=== PATIENT | male | born 1950 | race Caucasian/White ===

== ENCOUNTER 2020-04-21 20:40 | Emergency (ER) | payer MEDICARE, OTHER ==
[~2020-04-21 20:40] MED LIST: Iopamidol-370 76% 500 ML 1 ML ONE
[2020-04-21 21:29] LABS: #Lymphocytes 1.1 thou/uL (1.20-3.40); #Monocytes 0.7 thou/uL (0.11-0.59); #Neutrophils 13.8 thou/uL (1.40-6.50); %Eosinophils 0.2 % (0.0-10.0); %Lymphocytes 7.2 % (21.0-51.0); %Monocytes 4.5 % (0.0-10.0); %Neutrophils 88.1 % (42.0-75.0); Hemoglobin 16.4 g/dL (14.0-18.0); Mean Corpuscular HGB CONC 32.9 g/dL (32.0-36.0); Mean Corpuscular Hemoglobin 29.9 pg (27.0-31.0); Platelet Count 227 thou/uL (130-400); RBC Distribution Width 13.3 % (11.5-14.5); Red Blood Cell (RBC) Count 5.47 mill/uL (4.70-6.10); White Blood Cell (WBC) Count 15.6 thou/uL (4.8-10.8)
[2020-04-21] MEDS ORDERED: Ondansetron PF 4 MG/2 ML Vial ONE (21:30)
[2020-04-21] MEDS ORDERED: Morphine 4 MG/ML VIAL ONE ×2 (21:42→22:27)
[2020-04-21 21:54] LABS: ALT (SGPT) 32 U/L (8-55); AST (SGOT) 34 U/L (5-34); Albumin 4.6 g/dL (3.4-4.8); Alkaline Phosphatase 30 U/L (40-110); Anion Gap 17 mmol/L (10-20); BUN (Urea Nitrogen) 13 mg/dL (8.4-25.7); Calc. Creatinine Clearance 0 mL/min (70-130); Calcium 10.3 mg/dL (7.8-10.44); Carbon Dioxide 25 mmol/L (23-31); Chloride 100 mmol/L (98-107); Estimated GFR-MDRD 56; Globulin 3.5 g/dL (2.4-3.5); Glucose 161 mg/dL (80-115); Lipase 62 U/L (8-78); Potassium 3.4 mmol/L (3.5-5.1); Protein, Total 8.1 g/dL (5.8-8.1); Sodium 139 mmol/L (136-145)
[2020-04-21] MEDS ORDERED: Metoclopramide HCl 10 MG/2 ML VIAL ONE (22:27)
[2020-04-22 00:01] LABS: Bilirubin Negative (Negative); Blood, Urine Negative (Negative); Clarity Clear (Clear); Glucose, Urine (Dipstick) Normal (Negative); Leukocyte Negative Leu/uL (Negative); Nitrite Negative (Negative); Protein, Urine (Dipstick) 20 mg/dL (Neg-Trace); Urobilinogen Normal mg/dL (Less than 2)
--- NOTE | 2020-04-22 10:43 | CT ---
CT ABDOMEN AND PELVIS PERFORMED WITH CONTRAST ENHANCEMENT: HISTORY: Right-sided abdomen pain since yesterday. The pain has become worse. FINDINGS: Lung bases show some more interstitial subpleural opacity which I would favor as being chronic in soren ure. The liver shows fatty change. The spleen is within normal limits of size and pancreas region appears unremarkable. The surgical clips in the gallbladder appear to have been removed. There is also a c ystic-appearing structure within the right lobe of the liver. It measures almost 4 cm in size. Ther e are 2 clips along the posterior wall. It has CT numbers that this is a cyst. It may be some type of sequelae of the surgery. It is not felt to be of significance. Right and left adrenal glands and right and left kidneys are normal in size. There is mild fluid-reinaldo led distention of some of the small bowel loops. There is some fecalization of some of the small bow el contents of the more distal ileum and some subtle wall thickening present to the terminal ileum, s ome of which may be more chronic in nature as there appears to be some fatty change within the wall. The possibility that this was related to some type of inflammatory bowel disease should be a conside ration. There is some moderate generalized colonic diverticulosis. An appendix is not identified. No free fluid is noted. Prostate is enlarged. No pelvic lymphadenopathy or mass. IMPRESSION: 1. Mild fluid-filled distention of the small bowel loops to the distal ileum. There is fecalization of some of the small bowel contents of the distal ileum and a suggestion of some slight wall thicken ing to the terminal ileum near the ileocecal valve. Although there is not the characteristic strictu re of inflammatory disease such as Crohn's, I think that this would definitely be a consideration. A n enteritis would be another possibility. There is no free fluid or any signs for pneumotosis. No d efinite evidence of an obstructing mass. 2. Moderate colonic diverticulosis. 3. Fatty change of the liver. POS: [facility]
== END 2020-04-22 00:45 | disposition home or self-care (01) ==
LOC: ERS 20:40
DX: R10.9 Unspecified abdominal pain (principal); R11.2 Nausea with vomiting, unspecified; K21.9 Gastro-esophageal reflux disease without esophagitis; I10 Essential (primary) hypertension; F32.9 Major depressive disorder, single episode, unspecified; F43.10 Post-traumatic stress disorder, unspecified; Z79.84 Long term (current) use of oral hypoglycemic drugs; Z79.899 Other long term (current) drug therapy
CPT/HCPCS: 36415; 74177; 80053; 81003; 82010; 83690; 85025; 94760; 96361; 96365; 96375; 96376; J2270; J2405; J2765; Q9967